=== PATIENT | male | born 1980 | race Caucasian/White ===

== ENCOUNTER 2020-11-04 05:54 | Emergency (ER) | payer SELFPAY ==
[~2020-11-04] VITALS: Ht 175.3 cm; Wt 87.6 kg
--- NOTE | 2020-11-04 06:35 | RAD ---
EXAM: AP, lateral and lumbosacral spot views of the lumbar spine DATE: 11/04/2020 6:15 AM INDICATION: Reason: lower back pain, no trauma, recent heavy lifting / Spl. Instructions: / History: COMPARISON: No Prior FINDINGS: 5 nonrib-bearing lumbar-type vertebral bodies. Vertebral body heights are preserved. Disc heights are preserved. No spondylolisthesis. Straightening of the normal lumbar lordosis. Moderate colonic stool content. IMPRESSION: 1. Negative acute fracture or subluxation. Electronically signed by: Rahul Morton MD (11/04/2020 6:33 AM) ALYSSA
[2020-11-04] MEDS ORDERED: CYCL-331 PO (06:38)
--- NOTE | 2020-11-04 06:38 | PHYS DOC ---
Past History Past Surgical History: Appendectomy, Other Additional Past Surgical Histo: left knee surgery Additional Smoking Information: chews tobacco Alcohol Use: None General Adult EDM: Chief Complaint: BACK PAIN - NO INJURY HPI: HPI: 40-year-old male presents with low back pain. Patient has been doing a lot of heavy labor over the last week and he has had a sore back. He presents this morning because the pain seems to be worse. He has been taking ibuprofen and Tylenol at home. He admits that he has not been able to take an adequate amount of time to rest and get better. He denies any falls or trauma. He has no numbness, tingling, or altered sensation in the buttocks or legs. No history of back surgeries. No change in urine habits. Denies fever or chills. Review of Systems: Review of Systems: Constitutional: Denies fever or chills Eyes: Denies change in visual acuity HENT: Denies nasal congestion or sore throat Respiratory: Denies cough or shortness of breath Cardiovascular: Denies chest pain or edema GI: Denies abdominal pain, nausea, vomiting, bloody stools or diarrhea : Denies dysuria Musculoskeletal: Bilateral low back pain Integument: Denies rash Neurologic: Denies headache, focal weakness or sensory changes Endocrine: Denies polyuria or polydipsia Lymphatic: Denies swollen glands Psychiatric: Denies depression or anxiety Allergies: Allergies: Allergies Coded Allergies Type Severity Reaction Last Updated Verified Penicillins Allergy Unknown 11/04/20 Yes Physical Exam: PE: Constitutional: Well developed, well nourished, no acute distress, non-toxic appearance. [] HENT: Normocephalic, atraumatic, bilateral external ears normal, oropharynx moist, no oral exudates, nose normal. [] Eyes: PERRLA, EOMI, conjunctiva normal, no discharge. [] Neck: Normal range of motion, no tenderness, supple, no stridor. [] Cardiovascular:Heart rate regular rhythm, no murmur [] Lungs & Thorax: Bilateral breath sounds clear to auscultation [] Abdomen: Bowel sounds normal, soft, no tenderness, no masses, no pulsatile masses. [] Skin: Warm, dry, no erythema, no rash. [] Back: Tenderness L3-L5 and bilateral paraspinal muscle spasm [] Extremities: No tenderness, no cyanosis, no clubbing, ROM intact, no edema. [] Neurologic: Alert and oriented X 3, normal motor function, normal sensory function, no focal deficits noted. [] Psychologic: Affect normal, judgement normal, mood normal. [] Current Patient Data: Vital Signs: Vital Signs Date Time Temp Pulse Resp B/P (MAP) Pulse Ox O2 Delivery O2 Flow Rate FiO2 11/04/20 06:00 98.0 109 16 152/91 (111) 98 Room Air EKG: EKG: [] Radiology/Procedures: Radiology/Procedures: [] Impressions: EXAM: AP, lateral and lumbosacral spot views of the lumbar spine DATE: 11/04/2020 6:15 AM INDICATION: Reason: lower back pain, no trauma, recent heavy lifting / Spl. Instructions: / History: COMPARISON: No Prior FINDINGS: 5 nonrib-bearing lumbar-type vertebral bodies. Vertebral body heights are preserved. Disc heights are preserved. No spondylolisthesis. Straightening of the normal lumbar lordosis. Moderate colonic stool content. IMPRESSION: 1. Negative acute fracture or subluxation. Electronically signed by: Rahul Morton MD (11/04/2020 6:33 AM) [facility] DICTATED AND SIGNED BY: RAHUL MORTON MD DATE: 11/04/20630 CC: JAZZ JAQUEZ DO; PROSPER BACON ~MTH0 0 Heart Score: C/O Chest Pain: N/A Risk Factors: Risk Factors: DM, Current or recent (<one month) smoker, HTN, HLP, family history of CAD, obesity. Risk Scores: Score 0 - 3: 2.5% MACE over next 6 weeks - Discharge Home Score 4 - 6: 20.3% MACE over next 6 weeks - Admit for Clinical Observation Score 7 - 10: 72.7% MACE over next 6 weeks - Early Invasive Strategies Course & Med Decision Making: Course & Med Decision Making Pertinent Labs and Imaging studies reviewed. (See chart for details) The patient just appears to have overuse fatigue with reflex muscle spasm. The patient's lumbar x-rays are negative for acute findings. I have advised that he take some time for rest. I will give him a [place] 5/325, Flexeril 10 mg, prednisone 60 mg in the emergency room. I have explained to him that ibuprofen, Flexeril, ice, and rest will be the best way to treat this at home over the next day or 2. I also stressed to him the importance of proper mechanics and we reviewed these. He is stable for discharge at this time. [] Chirag Disclaimer: Chirag Disclaimer: This electronic medical record was generated, in whole or in part, using a voice recognition dictation system. Departure Departure: Impression: Primary Impression: Acute lumbar myofascial strain Qualified Codes: S39.012A - Strain of muscle, fascia and tendon of lower back, initial encounter Disposition: HOME / SELF CARE / HOMELESS Condition: STABLE Referrals: PROSPER BACON (PCP) Patient Instructions: Low Back Strain with Rehab-[facility] Scripts Cyclobenzaprine Hcl (CYCLOBENZAPRINE HCL) 10 Mg Tablet 1 TAB PO TID PRN for MUSCLE SPASMS, #30 TAB Prov: JAZZ JAQUEZ DO 11/04/20 JAZZ JAQUEZ DO Nov 04, 2020 06:38
[2020-11-04] MEDS ORDERED: HYDROcodone/APAP 5/325MG 1 TAB TABLET PO ONE (07:00)
[2020-11-04] MEDS ORDERED: CYCLOBENZAPRINE 10 MG TABLET. PO ONE (07:00)
[2020-11-04] MEDS ORDERED: predniSONE 20 MG TABLET PO ONE (07:00)
[2020-11-04 07:17] VITALS: BP 147/97
== END 2020-11-04 07:20 | disposition home or self-care (01) ==
LOC: ER 05:54
DX: S39.012A Strain of muscle, fascia and tendon of lower back, initial encounter (principal); Z88.0 Allergy status to penicillin; X58.XXXA Exposure to other specified factors, initial encounter; Y93.89 Activity, other specified; Y92.89 Other specified places as the place of occurrence of the external cause; Y99.8 Other external cause status
CPT/HCPCS: 72100; 99284; J7512

== ENCOUNTER 2021-06-29 12:41 | Emergency (ER) | payer SELFPAY ==
[~2021-06-29] VITALS: Ht 175.3 cm; Wt 96.0 kg
[~2021-06-29 12:41] MED LIST: CYCL10TA19 PO
[2021-06-29] MEDS ORDERED: IV NORMAL SALINE 1,000ML 1,000 ML IV ONE (12:45)
[2021-06-29] MEDS ORDERED: ONDANSETRON PF 4 MG/2 ML VIAL. IVP ONE (12:45)
--- NOTE | 2021-06-29 12:51 | PHYS DOC ---
Past History Past Surgical History: Appendectomy, Other Additional Past Surgical Histo: left knee surgery Alcohol Use: None General Adult EDM: Chief Complaint: OVERDOSE HPI: HPI: 41-year-old male presents via EMS after unresponsive episode. The patient was in a car unresponsive with shallow respirations. He was breathing on his own. He was assisted by EMS with a BVM until he got into the ambulance. They establish IV access and gave 1 mg of Narcan by IV. Prior to arrival in the emergency room, the patient woke up and was responsive and aware. Patient denies doing any drugs. Someone at the scene mentioned possible Xanax use. Patient states he has been drinking alcohol and maybe he passed out from that. He denies any street or prescription drug use. Review of Systems: Review of Systems: Constitutional: Denies fever or chills Eyes: Denies change in visual acuity HENT: Denies nasal congestion or sore throat Respiratory: shortness of breath Cardiovascular: Denies chest pain or edema GI: Denies abdominal pain, nausea, vomiting, bloody stools or diarrhea : Denies dysuria Musculoskeletal: Denies back pain or joint pain Integument: Denies rash Neurologic: Denies headache, focal weakness or sensory changes Endocrine: Denies polyuria or polydipsia Lymphatic: Denies swollen glands Psychiatric: Denies depression or anxiety Allergies: Allergies: Allergies Coded Allergies Type Severity Reaction Last Updated Verified Penicillins Allergy Unknown 11/04/20 Yes Physical Exam: PE: Constitutional: Well developed, well nourished, no acute distress, non-toxic appearance. [] HENT: Normocephalic, atraumatic, bilateral external ears normal, oropharynx moist, no oral exudates, nose normal. [] Eyes: PERRLA, EOMI, conjunctiva normal, no discharge. [] Neck: Normal range of motion, no tenderness, supple, no stridor. [] Cardiovascular: Heart rate regular rhythm, no murmur [] Lungs & Thorax: Bilateral breath sounds clear to auscultation [] Abdomen: Bowel sounds normal, soft, no tenderness, no masses, no pulsatile masses. [] Skin: Warm, dry, no erythema, no rash. [] Back: No tenderness, no CVA tenderness. [] Extremities: No tenderness, no cyanosis, no clubbing, ROM intact, no edema. [] Neurologic: Alert and oriented X 3, normal motor function, normal sensory function, no focal deficits noted. Patient initially did not know what time of day it was or what facility he was in. [] Psychologic: Affect normal, judgement normal, mood normal. [] EKG: EKG: Sinus rhythm, rate 84, normal axis, [address] elevation in V2. [] Radiology/Procedures: Radiology/Procedures: [] Impressions: Single AP view of the chest. Comparison: None. Indication: Shortness of breath and overdose Findings: The heart is enlarged. There is no pneumothorax or effusion. There is right midlung atelectasis and/or scarring. Impression: 1. No acute cardiopulmonary process. Electronically signed by: Teagan Holly MD (06/29/2021 1:05 PM) [id number] DICTATED AND SIGNED BY: TEAGAN HOLLY MD DATE: 06/29/21 [id number] CC: JAZZ JAQUEZ DO; PROSPER BACON ~ Heart Score: C/O Chest Pain: N/A Risk Factors: Risk Factors: DM, Current or recent (<one month) smoker, HTN, HLP, family history of CAD, obesity. Risk Scores: Score 0 - 3: 2.5% MACE over next 6 weeks - Discharge Home Score 4 - 6: 20.3% MACE over next 6 weeks - Admit for Clinical Observation Score 7 - 10: 72.7% MACE over next 6 weeks - Early Invasive Strategies Course & Med Decision Making: Course & Med Decision Making Pertinent Labs and Imaging studies reviewed. (See chart for details) Chest x-ray is negative for acute findings. The patient finally admitted that he took a street oxycodone. This was likely laced with fentanyl. He has an elevated troponin of 98, elevated creatinine, elevated liver enzymes. I will give him a liter normal saline. His EKG showed 1 mm elevation alone in V2. I will repeat a troponin. The patient demanded to leave after his second troponin was drawn. He did not want to wait for results. He also refused to continue to be monitored in the emergency room. He was advised that he could have complications including and he left AGAINST MEDICAL ADVICE anyway. [] Dragon Disclaimer: Dragon Disclaimer: This electronic medical record was generated, in whole or in part, using a voice recognition dictation system. Departure Departure: Impression: Primary Impression: Narcotic overdose Disposition: 07 LEFT AGAINST MEDICAL ADVICE Condition: STABLE Referrals: PROSPER BACON (PCP) JAZZ JAQUEZ DO June 29, 2021 12:51
[2021-06-29 13:01] LABS: BASO # 0.1 x10^3/uL (0.0-0.2); BASO % 1 % (0-3); EOS # 0.1 x10^3/uL (0.0-0.7); EOS % 1 % (0-3); HEMATOCRIT 41.8 % (39.0-53.0); HEMOGLOBIN 13.7 g/dL (13.0-17.5); LYMPH # 1.6 x10^3/uL (1.0-4.8); LYMPH % 15 % (24-48); MEAN CORPUSCULAR HEMOGLOBIN 31 pg (25-35); MEAN CORPUSCULAR HGB CONC 33 g/dL (31-37); MEAN CORPUSCULAR VOLUME 93 fL (79-100); MONO # 0.7 x10^3/uL (0.0-1.1); MONO % 7 % (0-9); NEUT # 8.2 x10^3uL (1.8-7.7); NEUT % 76 % (31-73); PLATELET COUNT 236 x10^3/uL (140-400); RED BLOOD COUNT 4.48 x10^6/uL (4.30-5.70); RED CELL DISTRIBUTION WIDTH 13.8 % (11.5-14.5); WHITE BLOOD COUNT 10.7 x10^3/uL (4.0-11.0)
--- NOTE | 2021-06-29 13:08 | RAD ---
Single AP view of the chest. Comparison: None. Indication: Shortness of breath and overdose Findings: The heart is enlarged. There is no pneumothorax or effusion. There is right midlung atelectasis and/ or scarring. Impression: 1. No acute cardiopulmonary process. Electronically signed by: Ascencion Echavarria MD (06/29/2021 1:05 PM) [id number]
[2021-06-29 13:10] LABS: CALCIUM 8.3 mg/dL (8.5-10.1); CREATININE 1.8 mg/dL (0.7-1.3); POTASSIUM 4.3 mmol/L (3.5-5.1)
[2021-06-29] MEDS ORDERED: NALOXONE 2 MG/2 ML DISP.SYRIN. IV ONE ×2 (13:15→16:15)
[2021-06-29 13:16] LABS: ALBUMIN 3.7 g/dL (3.4-5.0); ALBUMIN/GLOBULIN RATIO 1.2 (1.0-1.7); TOTAL BILIRUBIN 0.4 mg/dL (0.2-1.0); TOTAL PROTEIN 6.8 g/dL (6.4-8.2)
[2021-06-29 13:28] LABS: % ATYL 4 % (0-0); % BANDS 2 % (0-9); % EOS 1 % (0-5); % LYMPHS 20 % (24-48); % MONOS 5 % (0-10); % SEGS 68 % (35-66)
[2021-06-29 13:31] LABS: PLT ESTIMATE ADEQUATE (ADEQUATE)
[2021-06-29 14:15] VITALS: BP 145/85
[2021-06-29 14:52] LABS: BARBITURATES NEG (NEG); BENZODIAZEPINES POS (NEG); CANNABINOIDS POS (NEG); COCAINE NEG (NEG); METHADONE NEG (NEG); OPIATES NEG (NEG); PHENCYCLIDINE NEG (NEG)
[2021-06-29 14:55] LABS: BACTERIA,URINE 0 /HPF (0-FEW); CLARITY,URINE CLEAR; COLOR,URINE YELLOW; GLUCOSE,URINE NEG (NEG); NITRITE,URINE NEG (NEG); RBC,URINE 0 /HPF (0-2); SQUAMOUS EPITHELIAL CELL,UR OCC /LPF; UROBILINOGEN,URINE 0.2 mg/dL (0.2 mg/dL); WBC,URINE OCC /HPF (0-4)
[2021-06-29 15:00] LABS: AMPHETAMINE/METHAMPHETAMINE NEG (NEG)
== END 2021-06-29 15:24 | disposition left against medical advice (07) ==
LOC: ER 12:41
DX: T40.601A Poisoning by unspecified narcotics, accidental (unintentional), initial encounter (principal); Y92.89 Other specified places as the place of occurrence of the external cause
CPT/HCPCS: 36415; 71045; 80053; 80307; 81001; 84484; 85007; 85025; 93005; 96361; 96374; 96375; 99285; G0480; J2310; J2405; J7030